=== PATIENT | female | born 1995 | race Caucasian/White ===

== ENCOUNTER → 2019-11-09 10:44 | Outpatient (CLI) | payer OTHER, SELFPAY ==
--- NOTE | ~2019-11-09 | XR_ITS ---
XR lumbar spine 2-3V DATE: 11/09/2019 11:02 INDICATION: Sciatica TECHNIQUE: AP, lateral, coned lateral lumbosacral views COMPARISON: None FINDINGS: There is minimal dextroscoliosis of the lumbar spine. There is mild retrolisthesis at L4-5. The lumbar vertebrae are otherwise normally aligned. No fracture or bone destruction is evident. The included lower thoracic and lumbar pedicles are intact. Spina bifida occulta at L5. Lumbar and lumbosacral interspaces are relatively preserved. The sacroiliac joints are normal. Incidentally noted is a prominent amount of fecal material in the colon. IMPRESSION: Mild retrolisthesis at L4-5 Reviewed, dictated and finalized at location A. IMPRESSION: Mild retrolisthesis at L4-5
== END ==
PROVIDERS: PCP Family Medicine; Visit Provider Physician Assistant Medical
DX: M54.30 Sciatica, unspecified side (principal)
CPT/HCPCS: 72100

== ENCOUNTER 2021-10-24 11:39 | Outpatient (CLI) | payer BC, SELFPAY ==
[2021-10-24 11:57] LABS: Basophils Absolute Auto 0.1 K/mm3 (0.0-0.1); Basophils Percent Auto 0.7 % (0.2-1.2); Eosinophils Absolute Auto 0.2 K/mm3 (0-0.3); Eosinophils Percent Auto 1.8 % (0-4.4); Hematocrit 40.7 % (37.0-47.0); Hemoglobin 12.7 g/dL (12.0-15.0); Immature Granulocyte Absolute 0.03 K/mm3 (0.00-0.031); Immature Granulocyte Percent A 0.4 % (0-0.5); Lymphocytes Percent Auto 28.1 % (18.3-44.2); Mean Corpuscular HGB Conc 31.2 g/dl (32-36); Mean Corpuscular Hemoglobin 25.4 pg (26-34); Mean Corpuscular Volume 81.4 fl (80-100); Mean Platelet Volume 11.2 fl (7.4-10.4); Monocytes Absolute Auto 0.5 K/mm3 (0.1-0.6); Monocytes Percent Auto 5.7 % (2.6-8.5); Neutrophils Absolute Auto 5.4 K/mm3 (1.3-6.7); Neutrophils Percent Auto 63.3 % (45.5-73.1); Platelet Count Result 224 k/mm3 (150-375); Red Cell Distribution Width 13.3 % (11.5-14.5); White Blood Count 8.5 K/mm3 (4.5-10.0)
[2021-10-24 12:12] LABS: Alanine Aminotransferase 18 U/L (6-35); Albumin Level 4.6 g/dL (3.5-5.1); Alkaline Phosphatase 89 U/L (38-126); Anion Gap 12 mmol/L (8-16); Aspartate Amino Transferase 21 U/L (14-36); Bilirubin,Total 0.8 mg/dL (0.2-1.3); Blood Urea Nitrogen 13 mg/dL (7-17); CRP 1.5 mg/dL (<1.0); Calcium 9.3 mg/dL (8.4-10.2); Carbon Dioxide 28 mmol/L (22-30); Chloride 100 mmol/L (98-107); Cholesterol 191 mg/dL (0-200); Estimated Glomerular Filt Rate > 60; Glucose 91 mg/dL (65-110); HDL Direct 50 mg/dL; Potassium 4.2 mmol/L (3.4-5.0); Rheumatoid Factor < 8.6 IU/ML (<12); Sodium 140 mmol/L (137-145); Triglycerides 73 mg/dL (<150)
[2021-10-24 12:21] LABS: LDL Cholesterol Direct 100 mg/dL
[2021-10-24 12:22] LABS: Iron 36 ug/dL (37-170)
[2021-10-24 12:31] LABS: Percent Iron Saturation 8 % (20-50)
[2021-10-24 12:39] LABS: Thyroid Stimulating Hormone 0.681 uIU/mL (0.465-4.680)
[2021-10-24 12:51] LABS: Vitamin D 25 Hydroxy 38.4 ng/mL
[2021-11-01 14:43] LABS: ANA Cascade Screen Negative (Negative)
== END 2021-10-24 11:40 | disposition home or self-care (01) ==
LOC: ANHLAB 11:41
PROVIDERS: PCP Family Medicine; Visit Provider Nurse Practitioner Family
DX: E55.9 Vitamin D deficiency, unspecified (principal); R53.83 Other fatigue; M54.9 Dorsalgia, unspecified; M25.50 Pain in unspecified joint; Z13.29 Encounter for screening for other suspected endocrine disorder; Z13.220 Encounter for screening for lipoid disorders; R25.2 Cramp and spasm; Z13.1 Encounter for screening for diabetes mellitus; E61.1 Iron deficiency; R20.0 Anesthesia of skin; R20.2 Paresthesia of skin; F41.8 Other specified anxiety disorders; R41.89 Other symptoms and signs involving cognitive functions and awareness
CPT/HCPCS: 36415; 80053; 80061; 82306; 82607; 83540; 83550; 84443; 85025; 86038; 86140; 86430

== ENCOUNTER 2024-09-01 19:45 | Emergency (ER) | payer BC, SELFPAY ==
--- NOTE | ~2024-09-01 | CT_ITS ---
CT abdomen pelvis w con Ordering provider: Jomar Mon MD History: 30 years Female with . epigastric pain radiating to back, suspect stone . Comparison: None. Technique: CT abdomen and pelvis with IV and without oral contrast. Automated exposure control and it erative reconstruction technique were employed. The dose-length product was 563.56 mGy-cm. 100 mL Omn ipaque 350 was given IV. Findings: VISUALIZED LOWER CHEST: Possible nodule in the right upper lobe measuring 4 mm is partially imaged. 6 months Follow-up CT is advised. UPPER ABDOMINAL ORGANS: Liver: Normal. Gallbladder: Contracted. Spleen: Normal. Stomach/duodenum: Normal. Pancreas: Normal. Adrenals: Normal. Kidneys: Tiny cyst in the right kidney lower pole. PELVIC ORGANS: The bladder is underfilled with thickened wall. Evaluation for cystitis advised. Retroverted uterus. Hyperdense areas seen in both ovaries which may indicate a ruptured follicles. BOWEL AND MESENTERY: Colon: No evidence of diverticulitis.. Normal appendix. Small Bowel: Normal. No obstruction. Peritoneum/mesentery: No free air or free fluid. No mesenteric lymphadenopathy. RETROPERITONEUM: Normal aorta. No retroperitoneal lymphadenopathy. MUSCULOSKELETAL: Superficial soft tissues: Small fat-containing umbilical hernia. Otherwise, l/The superficial soft ti ssues are normal. Bones: Normal. Bilateral spondylolysis. Otherwise, normal spine. IMPRESSION: 1. No evidence of appendicitis, diverticulitis or obstruction is slightly. 2. Possible nodule in the right upper lobe. 6 months follow-up CT is advised. 3. 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 Reviewed, dictated and finalized at location A.
[2024-09-01 19:47] VITALS: BP 175/93; PULSE 79; RESP 18; TEMP 36.4; O2SAT 98
--- OUTSIDE RECORDS SUMMARY | 2024-09-01 19:47 | XMS_ITS | Clinical Summary ---
Author Organization [facility] Address [address] [place] [address] Care Team Providers Care Supervisor Agricultural Education Name Role Phone Renard Malhotra MD Primary Care Provider [phone] Source Comments [facility],non-owned Affiliates and Associated Physician Practices is amultiple site organization consisting of ambulatory clinics and hospital sitesin [place], [place], [place] and [place]. This disclosure is being madepursuant to the Care Everywhere program and may not contain all information available regarding this patient. Last updated 17.[employer] [facility] Allergies Active Allergy Reactions Criticality Noted Date Comments Flu Virus Vaccine Anaphylaxis High 06/22/2015 Lidocaine Anaphylaxis High 06/22/2015 Tuberculin Tests Anaphylaxis High 10/13/2020 Redness around site, swelling, itchy Medications * Be aware that medications may not be up to date on this document. Alwaysverify current medications with the patient. norethindrone-et hinyl estradiol (LOESTRIN 1.5/30) 1.5-30 MG-MCG tablet Take 1 Tab by mouth once daily Active desvenlafaxine SR 24hr (PRISTIQ) 50 MG tablet Take 50 mg by mouth once daily Active BusPIRone HCl (BUSPAR PO) Take by mouth once daily Active levonorgestrel (MIRENA, 52 MG,) 20 MCG/24HR IUDIndications:r eceived October 2015 for birthcontrol 1 Device by Intrauterine route as directed Reasons: received October 2015 for birthcontrol Active fluticasone propionate (FLONASE) 50 MCG/ACT nasal spray [place] 2 Sprays into each nostril once daily 1 Bottle 6 Active albuterol HFA (PROAIR HFA) 108 (90 BASE) MCG/ACT inhaler Inhale 2 Puffs by mouth every 4 hours as needed for Shortness of Breath, Wheezing or Cough 1 Inhaler 6 Active EPINEPHrine (EPIPEN) 0.3 MG/0.3ML auto-injector pen Inject 0.3 mL into muscle once as needed for Anaphylaxis 0.6 mL 1 1 Active hydrOXYzine hcl (ATARAX) 25 MG tablet Take 1 (one) tablet by mouth 4 times daily as needed for Itching 15 tablet 1 Active ondansetron, disintegrating, (ZOFRAN ODT) 4 MG tablet Take 1 (one) tablet by mouth every 6 hours as needed for Nausea/Vomiting Allow tablet to dissolve on the tongue 8 tablet 1 Active Social History Tobacco Use Types Packs/Day Years Used Date Smoking Tobacco: Never Smokeless Tobacco: Never Alcohol Use Standard Drinks/Week Comments Not Currently 0 (1 standard drink = 0.6 oz pur e alcohol) socially Comments No Sex and Gender Information Value Date Recorded Sex Assigned at Not on file 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 Gender Identity Not on file Sexual Orientation Not on file Last Filed Vital Signs Vital Sign Reading Time Taken Comments Blood Pressure 162/92 10/14/2020 2:48 AM CDT Pulse 92 10/14/2020 2:48 AM CDT Temperature 36.7 C (98.1 F) 10/14/2020 2:48 AM CDT Respiratory Rate 16 10/14/2020 2:48 AM CDT Oxygen Saturation 100% 10/14/2020 2:48 AM CDT Inhaled Oxygen Concentration - - Weight 83.9 kg (185 lb) 10/13/2020 11:08 PM CDT Height 167.6 cm (5' 6) 10/13/2020 11:08 PM CDT Body Mass Index 29.86 10/13/2020 11:08 PM CDT Plan of Treatment Health Maintenance Due Date Last Done Comments HIV SCREENING 02/17/2009 HEPATITIS C SCREENING 02/13/2012 DTAP/TDAP/TD VACCINES (1 - Tdap) 02/17/2013 HEPATITIS B VACCINE (1 of 3 - 19+ 3-dose series) 02/17/2013 COVID-19 VACCINE (2023-2 5 season) 2023 DEPRESSION SCREENING 03/31/2024 ZOSTER VACCINE (1 of 2) 02/18/2044 HIB VACCINE Aged Out No longer eligi ble based on patient's age to complete this topic HPV VACCINE Aged Out No longer eligi ble based on patient's age to complete this topic MENINGOCOCCAL (Group B) VACC INE SHARED DECISION-MAKING Aged Out No longer eligibl e based on patient's age to complete this topic MENINGOCOCCAL GROUPS A/C/Y/W VACCINE Aged Out No longer eligible b ased on patient's age to complete this topic PNEUMOCOCCAL VACCINE Aged Out No long er eligible based on patient's age to complete this topic Care Teams Supervisor Agricultural Education Relationship Specialty Start Date End Date Renard Malhotra MD [address] [place] [address] PCP - General Family Medicine 10/14/20
--- NOTE | 2024-09-01 20:04 | ED_ITS ---
HPI - Abdominal Pain General Chief Complaint: Abdominal Pain Stated Complaint: sharp pain in abdomen Time Seen by Provider: 09/01/24 19:52 History of Present Illness HPI narrative: 30-year-old female with history of kidney stones and gallstones presenting to the emergency department epigastric pain radiating towards her back. Symptoms started earlier today and got worse after she tried eat injuring something. She has tried Tylenol and Pepto-Bismol home as well as Zofran without any relief of symptoms. She states she has also been feeling unwell for last few days with sudden diarrhea that has since resolved and then the pain started today. No trauma or injury. No recent travel. No fever chills. No urinary complaints. Denies any chance of . No history of abdominal surgeries. Related Data Home Medications ?Medication ?Instructions ?Recorded ?Confirmed ?Last Taken ?Type mecobalamin (vitamin B12) 500 mcg mcg PO 01/08/24 07/14/24 Unknown History chewable tablet fluticasone propionate 50 1 spray intranasal DAILY 04/30/24 08/13/24 Unknown History mcg/actuation nasal spray,suspension (Flonase Allergy Relief) multivitamin 1 tablet PO DAILY 04/30/24 07/14/24 Unknown History loratadine 10 mg capsule (Claritin 10 mg PO DAILY 08/13/24 08/13/24 Unknown History Liqui-Gel) omega-3 360 rp-bsk-anz-fish cap PO 08/13/24 08/13/24 Unknown History oil-vitamin D3 12.5 mcg capsule omeprazole 40 mg capsule,delayed mg PO DAILY 08/13/24 08/13/24 Unknown History release Allergies Allergy/AdvReac Type Severity Reaction Status Date / Time Milk Containing Products Allergy Severe Hives Verified 08/13/24 09:09 (Dairy) influenza A (H1N1) virus AdvReac Severe Anaphylactic Verified 08/13/24 07:46 vaccine m-dexter-split 2009 Shock (From influenza A (H1N1)) lidocaine AdvReac Severe Unknown Verified 08/13/24 07:46 tuberculin,PPD,multi-puncture AdvReac Mild Unknown Verified 08/13/24 07:46 Review of Systems 2 Review of Systems: As reviewed above in HPI [facility] Past Medical History Medical History Sinusitis chronic, frontal Bronchitis Tremor Iron deficiency UTI symptoms URI (upper respiratory infection) Brain fog BMI 33.0-33.9,adult BMI 32.0-32.9,adult Family History Family History Grandparent Breast cancer Ovarian cancer Grandparent Acute Crohn's disease Father Deep vein blood clot of right lower extremity Pulmonary embolism, blood-clot, obstetric Grandparent No problems noted. Grandparent Multiple sclerosis Mother Diabetes mellitus Sibling No problems noted. Social History Social History Smoking status: Never smoker Second hand tobacco smoke exposure: Yes Alcohol intake: former Substance use: current Substance use type: marijuana Do You Feel Safe in your Home?: Yes Lack of Transportation: No Lack of Food: Never True Current Housing: I Have Housing Concerned About Future Housing: No Difficulty Paying Gas/Electric Bills: No Difficulty Paying for Meds: No Currently Unemployed: No Difficulty w/ Childcare or Family Care: No Living arrangements: with family Occupation/Education: occupation Additional occupation/education comments: [employer] Gender identity (if verbalized by the patient): Female Sexual Orientation (if Verbalized by the Patient): Lesbian, Mariscal, or Homosexual Spiritual care concerns: No Agree to blood products: Yes Exam 2 Narrative: GENERAL: [Well-appearing, well-nourished, and in no acute distress.] HEAD: [Normocephalic, atraumatic.] EYES: [PERRLA and EOMI.] ENT: Nares clear, no rhinorrhea or epistaxis. Mucous membranes moist. NECK: Supple. CHEST: [Clear to auscultation. No respiratory distress.] HEART: [Regular rate and rhythm]. No murmur heard. [Normal peripheral pulses.] ABDOMEN: [Soft, nondistended], tender to palpation in the epigastrium but no rebound, [No rigidity or guarding] EXTREMITIES: Normal range of motion. [No edema.] SKIN: Warm, dry, no rash. NEURO: [No focal deficits]. Alert and oriented [x3.] PSYCH: [Normal mood and affect.] Course Vital Signs Vital signs: Vital Signs Temperature 36.4 C 09/01/24 19:47 Pulse Rate 79 06/04/25 19:47 Respiratory Rate 18 09/01/24 19:47 Blood Pressure 175/93 H 09/01/24 19:47 Pulse Oximetry 98 09/01/24 19:47 Oxygen Delivery Room Air 09/01/24 19:47 Temperature 36.4 C 09/01/24 19:47 Pulse Rate 77 09/01/24 22:00 Respiratory Rate 14 09/01/24 22:00 Blood Pressure 137/78 09/01/24 22:00 Pulse Oximetry 98 09/01/24 22:00 Oxygen Delivery Room Air 09/01/24 19:47 MDM - Abdominal Pain MDM Narrative Medical decision making narrative: 30-year-old female with history of gallstones and kidney stones presenting to the emergency room with epigastric pain radiating towards her back. Associated some nausea and vomiting. She has tried some Tylenol, Zofran, Pepto-Bismol at home without any significant relief. Pain started earlier this afternoon and got worse after she tried to eat something. For last few days she has also been having some diarrhea. No fever, chills, chest pain, shortness a breath, trauma or injury. Denies chance of . She does have some mild tenderness with examination of the abdomen. She is afebrile, slightly hypertensive but not severe range. No tachypnea, hypoxia. Considerations presently are for gastroenteritis is pressure with diarrheal component, gastritis, small bowel obstruction less likely. Possibility of kidney stone versus gallstones specially with the description of pain radiating towards her back. Low suspicion vascular pathology. Patient was given low-dose morphine, fluids, Zofran and laboratory studies including CBC, CMP, lipase, urinalysis and test ordered. CT scan of the abdomen pelvis with IV contrast ordered for further delineation. Patient re-evaluated after labs. Laboratory studies are very reassuring. No leukocytosis or anemia. Normal platelet count. Urinalysis without blood or infection. Negative test. Normal kidney and liver function panel. Normal electrolytes. Patient CT scan was independently reviewed and also interpreted by radiology. There is no apparent evidence of any diverticulitis, appendicitis, obstruction. No appreciable acute process in the abdomen or pelvis. There is some spondylosis of L5-S1 but not having any pain. Possible nodule in the right upper lobe which I informed the patient of for outpatient follow-up in 6 months with her doctor. Patient is not having upper respiratory symptoms or any chest symptoms showed no need for further evaluation at this time. Patient re-evaluated after pain control and is very comfortable. Tolerating oral intake, passed p.o. challenge and safe for discharge home. Sent home with Ethel and Nimesh as needed. Given return precautions. Medical Records Attestation: I reviewed the patient's medical records. Lab Data Attestation: I reviewed the patient's lab results. 09/01/24 20:12 09/01/24 20:12 Labs: Lab Results 09/01/24 09/01/24 Range/Units 20:12 21:39 WBC 9.5 (4.5-10.0) K/mm3 RBC 4.80 (4.2-5.4) M/mm3 Hgb 12.7 (12.0-15.0) g/dL Hct 39.2 (37.0-47.0) % MCV 81.7 (80-100) fl MCH 26.5 (26-34) pg MCHC 32.4 (32-36) g/dl RDW 12.9 (11.5-14.5) % Plt Count 218 (150-375) k/mm3 MPV 11.5 H (7.4-10.4) fl Immature Gran % (Auto) 0.2 (0-0.5) % Neut % (Auto) 64.0 (45.5-73.1) % Lymph % (Auto) 26.3 (18.3-44.2) % [place] % (Auto) 5.7 (2.6-8.5) % Eos % (Auto) 3.2 (0-4.4) % Baso % (Auto) 0.6 (0.2-1.2) % Lymph # (Auto) 2.50 (0.9-3.2) K/mm3 [place] # (Auto) 0.5 (0.1-0.6) K/mm3 Eos # (Auto) 0.3 (0-0.3) K/mm3 Baso # (Auto) 0.1 (0.0-0.1) K/mm3 Abs Immat Gran (auto) 0.02 (0.00-0.031) K/mm3 Absolute Neuts (auto) 6.1 (1.3-6.7) K/mm3 Absolute Nucleated RBC 0.000 (0.0-0.012) K/mm3 Nucleated RBC % 0.0 (0.0-0.2) % Sodium 139 (137-145) mmol/L Potassium 3.5 (3.4-5.0) mmol/L Chloride 106 (98-107) mmol/L Carbon Dioxide 23 (22-30) mmol/L Anion Gap 10 (4-12) mmol/L BUN 13 (7-17) mg/dL Creatinine 0.69 L (0.7-1.0) mg/dL Estim Creat Clear Calc 113 ml/min Estimated GFR > 60 (59 - ) Glucose 147 H (65-110) mg/dL Calcium 9.1 (8.4-10.2) mg/dL Total Bilirubin 0.8 (0.2-1.3) mg/dL AST 25 (14-36) U/L ALT 18 (6-35) U/L Alkaline Phosphatase 69 (38-126) U/L Total Protein 7.9 (6.3-8.2) g/dL Albumin 4.4 (3.5-5.1) g/dL Lipase 73 (23-300) U/L Serum HCG, Qual Negative Urine Color Yellow (Yellow) Urine Appearance Clear (Clear) Urine pH 5.5 (5.0-9.0) Ur Specific [place] 1.027 (1.001-1.035) Urine Protein Negative (Negative) mg/dL Urine Glucose (UA) Negative (Negative) mg/dL Urine Ketones Negative (Negative) mg/dL Ur Blood (Man) Negative (Negative) Urine Nitrate Negative (Negative) Urine Bilirubin Negative (Negative) Urine Urobilinogen 1.0 (<2.0) mg/dL Leukocyte Esterase Rfl Negative (Negative) CONNIE/UL Imaging Data Attestation: I personally reviewed and interpreted this imaging study as follows: My impression: Impressions Abdomen/Pelvis CT 09/01/24 21:36 IMPRESSION: 1. No evidence of appendicitis, diverticulitis or obstruction is slightly. 2. Possible nodule in the right upper lobe. 6 months follow-up CT is advised. 3. 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 Radiologist's impression: ITS Impressions Abdomen/Pelvis CT 09/01/24 21:36 IMPRESSION: 1. No evidence of appendicitis, diverticulitis or obstruction is slightly. 2. Possible nodule in the right upper lobe. 6 months follow-up CT is advised. 3. 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 Discharge Plan Discharge Clinical Impression: Gastroenteritis, Abdominal pain Patient Disposition: Home Condition: Stable Instructions: Antibiotic Form, Abdominal Pain (ED) Additional Instructions: All of your laboratory studies and imaging is very reassuring. Your symptoms are very consistent with gastroenteritis or stomach virus/flu. We will send you home with some Zofran and Bentyl as needed for symptom control. If symptoms persist or worsen follow-up with your regular doctor or return to the emergency department if not able tolerate oral intake, intractable fevers, intractable pain or any other concerns. We did discuss your incidental pulmonary nodule on your right side but this is unrelated to today's visit and just needs regular follow-up with your regular doctor in 6 months. Patient Language: Serbian Prescriptions: New dicyclomine 20 mg tablet 20 mg PO TID PRN (Reason: abdominal pain) Qty: 14 0RF ondansetron 4 mg tablet,disintegrating 4 mg PO Q8H PRN (Reason: nausea and vomiting) Qty: 20 0RF No Action mecobalamin (vitamin B12) 500 mcg tablet,chewable PO fluticasone propionate [Flonase Allergy Relief] 50 mcg/actuation spray,suspension 1 spray intranasal DAILY Rx Instructions: administer into each nostril multivitamin Tablet 1 tablet PO DAILY omeprazole 40 mg capsule,delayed release(DR/EC) PO DAILY [id number] oil-vit D3 360 mg- 12.5 mcg capsule PO Claritin Liqui-Gel 10 mg capsule 10 mg PO DAILY lisdexamfetamine [Vyvanse] 30 mg capsule 30 mg PO QAM Qty: 30 0RF Follow-up/Referrals: PHYSICIAN NOT ON STAFF,NONSTAFF [Primary Care Provider] - Time of Disposition: 22:08
--- NOTE | 2024-09-01 20:14 | PC.NURSE ---
Pt unable to give urine sample at this time.
[2024-09-01] MEDS: LACTATED RINGERS 1,000 ML 999 ML IV CONT (20:15)
[2024-09-01] MEDS: MORPHINE SULFATE (*CRX) 2 MG/ML INJ IV PUSH (20:15)
[2024-09-01] MEDS: ONDANSETRON INJ 4 MG/2 ML VIAL IV PUSH (20:15)
--- OUTSIDE RECORDS SUMMARY | 2024-09-01 20:16 | XMS_ITS | Referral Summary ---
Author Organization [place] [id number] [facility] Address [address] [place] [address] Care Team Providers Care Refund Specialist Name Role Phone Renard Malhotra MD Primary Care Provider [phone] Allergies Active Allergy Reactions Criticality Noted Date Comments Lidocaine Anaphylaxis Reaction: ANAPHYLAXIS Medications buPROPion XL (WELLBUTRIN XL) 300 mg 24 hr tablet 0 Active ondansetron ODT (ZOFRAN-ODT) 4 mg disintegrating tablet 0 Active cyclobenzaprine (FLEXERIL) 5 mg tablet [address] (CYMBALTA) 30 mg capsule 0 Active fluticasone propionate (FLONASE) 50 mcg/actuation nasal spray Administer 2 sprays into affected nostril(s) daily 6 Active hydrOXYzine (VISTARIL) 25 mg capsule 0 Active ibuprofen (ADVIL,MOTRIN) 600 mg tablet Take 600 mg by mouth every 6 (six) hours as needed Active Sprintec, 28, 0.25-35 mg-mcg per tablet 0 Active ondansetron ODT (ZOFRAN-ODT) 4 mg disintegrating tablet Dissolve 1 tablet oral every 4 hours as needed for nausea or vomiting. 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 Gender Identity Not on file Sexual Orientation Not on file Last Filed Vital Signs Vital Sign Reading Time Taken Comments Blood Pressure 150/95 01/25/2022 5:13 AM CDT Pulse 64 01/25/2022 5:13 AM CDT Temperature 36.5 C (97.7 F) 01/25/2022 1:03 AM CDT Respiratory Rate 16 01/25/2022 5:13 AM CDT Oxygen Saturation 98% 01/25/2022 5:13 AM CDT Inhaled Oxygen Concentration - - Weight 93 kg (205 lb) 01/24/2022 10:51 PM CDT Height 167.6 cm (5' 6) 01/24/2022 10:51 PM CDT Body Mass Index 33.09 01/24/2022 10:51 PM CDT Plan of Treatment Not on file Insurance CHOICE PLUS [facility] HMO/PPO Address: [facility] [address] [place] [address] CHOICE PLUS [facility] HMO/PPO Address: [facility] [id number] [place] [address] Care Teams Refund Specialist Relationship Specialty Start Date End Date Renard Malhotra MD PCP - General Family Medicine 01/23/22
--- OUTSIDE RECORDS SUMMARY | 2024-09-01 20:16 | XMS_ITS | Clinical Summary ---
Author Organization [facility] Address [address] [place] [address] Care Team Providers Care Chute Tapper Name Role Phone Renard Malhotra MD Primary Care Provider Source Comments [facility],non-owned Affiliates and Associated Physician Practices is amultiple site organization consisting of ambulatory clinics and hospital sitesin [place], [place], [place] and [place]. This disclosure is being madepursuant to the Care Everywhere program and may not contain all information available regarding this patient. 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
--- OUTSIDE RECORDS SUMMARY | 2024-09-01 20:16 | XMS_ITS | Clinical Summary ---
Author Organization [place] [id number] [facility] Address [address] [place] [address] Care Team Providers Care Student Recruiter Name Role Phone Renard Malhotra MD Primary Care Provider [phone] Allergies Active Allergy Reactions Criticality Noted Date [...] nausea or vomiting. 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 Gender Identity Not on file Sexual Orientation Not on file Obstetrics History Last Filed Vital Signs Vital Sign Reading [...] 01/24/2022 10:51 PM CDT Plan of Treatment Health Maintenance Due Date Last Done Comments Cervical Cancer Screening 02/17/1994 Depression Screening 02/17/1994 Hepatitis C Screening 02/17/1994 Varicella Vaccines (1 of 2 - 13+ 2-dose series) 02/17/2007 Regular Well Visit/Exam 18-64 02/18/2012 DTaP/Tdap/Td Vaccine (6 - Td or Tdap) 12/08/2015 12/07/2005, 11/17/1999, 10/10/1994, Additional history exists Influenza Vaccine (Season Ended) 2024 01/06/2009 Hepatitis B Screening Completed 1995 , 03/21/1994, 02/18/1994 HPV Vaccines Aged Out No longer eligi ble based on patient's age to complete this topic Pneumococcal vaccine <65 Aged Out No longer eligible based on patient's age to complete this topic Insurance CHOICE PLUS [facility] CHOICE PLUS [place] [id number] Care Teams Student Recruiter Relationship Specialty Start Date End Date Renard Malhotra MD PCP - General Family Medicine 01/23/22
[2024-09-01 20:18] LABS: Basophils Absolute Auto 0.1 K/mm3 (0.0-0.1); Basophils Percent Auto 0.6 % (0.2-1.2); Eosinophils Absolute Auto 0.3 K/mm3 (0-0.3); Eosinophils Percent Auto 3.2 % (0-4.4); Hematocrit 39.2 % (37.0-47.0); Hemoglobin 12.7 g/dL (12.0-15.0); Immature Granulocyte Absolute 0.02 K/mm3 (0.00-0.031); Immature Granulocyte Percent A 0.2 % (0-0.5); Lymphocytes Percent Auto 26.3 % (18.3-44.2); Mean Corpuscular HGB Conc 32.4 g/dl (32-36); Mean Corpuscular Hemoglobin 26.5 pg (26-34); Mean Corpuscular Volume 81.7 fl (80-100); Mean Platelet Volume 11.5 fl (7.4-10.4); Monocytes Absolute Auto 0.5 K/mm3 (0.1-0.6); Monocytes Percent Auto 5.7 % (2.6-8.5); Neutrophils Absolute Auto 6.1 K/mm3 (1.3-6.7); Platelet Count Result 218 k/mm3 (150-375); Red Cell Distribution Width 12.9 % (11.5-14.5); White Blood Count 9.5 K/mm3 (4.5-10.0)
[2024-09-01 20:33] LABS: Alanine Aminotransferase 18 U/L (6-35); Albumin Level 4.4 g/dL (3.5-5.1); Alkaline Phosphatase 69 U/L (38-126); Anion Gap 10 mmol/L (4-12); Aspartate Amino Transferase 25 U/L (14-36); Bilirubin,Total 0.8 mg/dL (0.2-1.3); Blood Urea Nitrogen 13 mg/dL (7-17); Calcium 9.1 mg/dL (8.4-10.2); Carbon Dioxide 23 mmol/L (22-30); Chloride 106 mmol/L (98-107); Estimated CRCL calculation 113 ml/min; Estimated Glomerular Filt Rate > 60; Glucose 147 mg/dL (65-110); Lipase 73 U/L (23-300); Potassium 3.5 mmol/L (3.4-5.0); Sodium 139 mmol/L (137-145); Total Protein 7.9 g/dL (6.3-8.2)
[2024-09-01 21:15] LABS: SPREG INTERNAL CONTROL Positive; Serum Qual hCG Negative
[2024-09-01 21:46] LABS: Add Urine Microscopic? NO; Appearance Urine Clear (Clear); Bilirubin Urine Negative (Negative); Blood Urine Negative (Negative); Color Urine Yellow (Yellow); Glucose Urine UA Negative (Negative); Ketones Urine Negative (Negative); Leukocyte Esterase Ur Negative LEU/UL (Negative); Nitrate Urine Negative (Negative); Protein Urine Negative (Negative); Specific Grav Ur 1.027 (1.001-1.035); pH Urine 5.5 (5.0-9.0)
[2024-09-01 22:00] VITALS: BP 137/78; PULSE 77; RESP 14; O2SAT 98
== END 2024-09-01 22:15 | disposition home or self-care (01) ==
PROVIDERS: Emergency Provider Student in an Organized Health Care Education/Training Program
DX: K52.9 Noninfective gastroenteritis and colitis, unspecified (principal); E61.1 Iron deficiency; Z77.22 Contact with and (suspected) exposure to environmental tobacco smoke (acute) (chronic); Z87.442 Personal history of urinary calculi; M43.07 Spondylolysis, lumbosacral region; R91.8 Other nonspecific abnormal finding of lung field
CPT/HCPCS: 36415; 74177; 80053; 81003; 83690; 84703; 85025; 96361; 96374; 96375; 99284; J2270; J2405; J7120; Q9967

== ENCOUNTER 2024-09-17 12:54 | Outpatient (CLI) | payer BC, SELFPAY ==
[2024-09-17 13:18] LABS: Hematocrit 39.4 % (37.0-47.0); Hemoglobin 12.8 g/dL (12.0-15.0); Mean Corpuscular HGB Conc 32.5 g/dl (32-36); Mean Corpuscular Hemoglobin 26.8 pg (26-34); Mean Corpuscular Volume 82.4 fl (80-100); Mean Platelet Volume 11.2 fl (7.4-10.4); Platelet Count Result 225 k/mm3 (150-375); Red Blood Count 4.78 M/mm3 (4.2-5.4); Red Cell Distribution Width 12.7 % (11.5-14.5); White Blood Count 6.7 K/mm3 (4.5-10.0)
[2024-09-17 13:30] LABS: Alanine Aminotransferase 17 U/L (6-35); Albumin Level 4.4 g/dL (3.5-5.1); Alkaline Phosphatase 70 U/L (38-126); Anion Gap 10 mmol/L (4-12); Aspartate Amino Transferase 25 U/L (14-36); Bilirubin,Total 1.2 mg/dL (0.2-1.3); Blood Urea Nitrogen 11 mg/dL (7-17); Calcium 9.1 mg/dL (8.4-10.2); Carbon Dioxide 25 mmol/L (22-30); Chloride 104 mmol/L (98-107); Cholesterol 193 mg/dL (0-200); Estimated Glomerular Filt Rate > 60; Glucose 88 mg/dL (65-110); HDL Direct 65 mg/dL; Magnesium 1.8 mg/dL (1.6-2.3); Potassium 4.1 mmol/L (3.4-5.0); Sodium 139 mmol/L (137-145); Total Protein 8.1 g/dL (6.3-8.2); Triglycerides 64 mg/dL (<150)
[2024-09-17 13:35] LABS: Iron 81 ug/dL (37-170)
[2024-09-17 13:41] LABS: LDL Cholesterol Direct 90 mg/dL
[2024-09-17 13:44] LABS: Percent Iron Saturation 18 % (20-50)
[2024-09-17 14:00] LABS: Thyroid Stimulating Hormone 0.633 uIU/mL (0.465-4.680)
[2024-09-17 14:32] LABS: Vitamin D 25 Hydroxy 24.7 ng/mL
[2024-09-17 14:36] LABS: Folic Acid 8.1 ng/mL (2.76->20)
== END 2024-09-17 12:55 | disposition home or self-care (01) ==
LOC: ANHLAB 12:56
PROVIDERS: PCP Family Medicine; Visit Provider Nurse Practitioner Family
DX: G25.0 Essential tremor (principal); F41.8 Other specified anxiety disorders; E55.9 Vitamin D deficiency, unspecified; R41.840 Attention and concentration deficit; R20.2 Paresthesia of skin; R53.83 Other fatigue
CPT/HCPCS: 36415; 80053; 80061; 82306; 82607; 82746; 83540; 83550; 83735; 84443; 85027

== ENCOUNTER 2025-02-18 21:38 | Emergency (ER) | payer BC, SELFPAY ==
--- NOTE | ~2025-02-18 | CT_ITS ---
CT abd pelvis lumbar w con CT lumbar spine Clinical History: fall, low back pain . Comparison: CT abdomen pelvis 09/01/2024 Technique: Axial images lung bases to symphysis pubis 100 mL Omnipaque 350 Coronal, sagittal reformats CT images acquired with automatic exposure control for dose reduction DLP: 767 mGy-cm Findings: Lung bases: Clear. Visualized heart and pericardium: Unremarkable. Liver: Steatosis. Gallbladder: Unremarkable. Spleen: Unremarkable. Pancreas: Unremarkable. Adrenal glands: Unremarkable. Kidneys: Right kidney- No hydronephrosis. No renal stones. Left kidney- No hydronephrosis. No renal stones. Distal esophagus/stomach: Unremarkable. Small bowel loops: Normal caliber and wall thickness. Colon: Normal caliber and wall thickness. Normal RLQ appendix. Nodes: No enlarged nodes. Peritoneum: No ascites. No free air. Urinary bladder: Unremarkable. Uterus: Retroflexed. Adnexa: No masses. Bones: No acute bony abnormality. Chronic L5 spondylolysis with minimal spondylolisthesis. Soft tissues: Unremarkable. Aorta: No aneurysm or dissection. IVC: Unremarkable. Main portal vein/SMV/splenic vein: Patent. IMPRESSION: Abdomen/pelvis: 1. No acute findings. Lumbar spine: 1. No acute findings. Reviewed, dictated and finalized at location R. OPEDIC SPECIALIST
--- NOTE | ~2025-02-18 | CT_ITS ---
CT thoracic spine without contrast CLINICAL HISTORY: fall Technique: Thoracic spine Sagittal and coronal reformats. No contrast CT images acquired with automatic exposure control for dose reduction DLP: 731 mGy-cm Comparison: None Findings: No fracture. No listhesis. No degenerative changes. No paravertebral soft tissue abnormality. IMPRESSION: 1. No acute abnormality. Reviewed, dictated and finalized at location R. D OR BLOOD BANK TECHNICIAN IMPRESSION: 1. No acute abnormality.
--- OUTSIDE RECORDS SUMMARY | 2025-02-18 21:41 | XMS_ITS | Clinical Summary ---
Author Organization [facility] Address [address] [place] [address] Care Team Providers Care Bunch Maker Hand Name Role Phone Renard Malhotra MD Primary Care Provider [phone] Source Comments [facility],non-owned Affiliates and Associated Physician Practices is amultiple site organization consisting of ambulatory clinics and hospital sitesin [place], [place], [place] and [place]. This disclosure is being madepursuant to the Care Everywhere program and may not contain all information available regarding this patient. 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
[2025-02-18 21:44] VITALS: BP 150/101; PULSE 90; RESP 18; TEMP 36.6; O2SAT 96
--- NOTE | 2025-02-18 22:24 | ED_ITS ---
HPI - Fall General Chief Complaint: Fall Stated Complaint: fall down 7 stairs, back pain Time Seen by Provider: 02/18/25 21:55 History of Present Illness HPI Narrative: 31-year-old female with a history of chronic sciatica, GERD, hypermobility. Patient presents to the ED after falling down several steps on her tailbone today. She was carrying a large bag of dog food down the basement steps and slipped on 1 step with her weight issues and struck her tailbone against the step and each subsequent step for the next 6 stairs. Did not hit her head or other extremities. Endorses pain strictly in the tailbone and lower spine as well as some worsening of her chronic paresthesias that she has in her bilateral lower extremities. Denies any weakness or numbness and states she does feels like a burning paresthesia that feels worse than her baseline that she has had previously. Denies any head trauma, chest trauma, abdominal trauma. No neck pain or stiffness. No vision deficits or loss of consciousness. No loss of urinary or bowel continence. Was able to get up with some assistance and was driven to the hospital. Patient endorses 9/10 pain in her tailbone but no other locations. Related Data Home Medications ?Medication ?Instructions ?Recorded ?Confirmed ?Last Taken ?Type mecobalamin (vitamin B12) 500 mcg mcg PO 01/08/2401/29 Unknown History chewable tablet multivitamin 1 tablet PO DAILY 04/30/24 1 04/20/24 Unknown History loratadine 10 mg capsule (Claritin 10 mg PO DAILY 07/2902/18/25 02/17/25 History Liqui-Gel) omega-3 360 ua-uwh-sjz-fish cap PO 08/13/24 02/10/25 U nknown History oil-vitamin D3 12.5 mcg capsule fluticasone propionate 50 2 spray intranasal BID 12/1702/18/25 02/18/25 History mcg/actuation nasal spray,suspension (Flonase Allergy Relief) Allergies Allergy/AdvReac Type Severity Reaction Status Date / Time Milk Containing Products Allergy Severe Hives Verified 02/18/25 22:31 (Dairy) influenza A (H1N1) virus AdvReac Severe Anaphylactic Verified 02/18/25 22:31 vaccine m-dexter-split 2009 Shock (From influenza A (H1N1)) lidocaine AdvReac Severe Unknown Verified 02/18/25 22:31 tuberculin,PPD,multi-puncture AdvReac Mild Unknown Verified 02/18/25 22:31 Review of Systems 2 Review of Systems: As reviewed above in [facility] Past Medical History Medical History Sinusitis chronic, frontal Bronchitis Tremor Iron deficiency UTI symptoms URI (upper respiratory infection) Brain fog BMI 33.0-33.9,adult BMI 32.0-32.9,adult Family History Family History Grandparent Breast cancer Ovarian cancer Grandparent Acute Crohn's disease Father Deep vein blood clot of right lower extremity Pulmonary embolism, blood-clot, obstetric Grandparent No problems noted. Grandparent Multiple sclerosis Mother Diabetes mellitus Sibling No problems noted. 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 Mucous membranes moist. NECK: Supple. CHEST: [Clear to auscultation. No respiratory distress.] HEART: [Regular rate and rhythm]. No murmur heard. [Normal peripheral pulses.] ABDOMEN: [Soft, nondistended], [nontender], [No rigidity or guarding] EXTREMITIES: Focal tenderness to palpation in the low lumbar spine near the tailbone. No step-offs deformities or bruising externally. No paraspinal muscle tenderness. EHL and FHL with 5/5 strength. Able to hold both legs against gravity without any difficulty. Able to abduct flex and extend at the legs. ankle plantar and dorsiflexion are full bilaterally. Straight leg raise elicits pain in the lumbar back worse on the left side compared to the right. No upper extremity injuries. No cervical or upper thoracic spinal injury. No extremity bruising or trauma. SKIN: Warm, dry, no rash. NEURO: Subjective mild paresthesias going down the sciatic nerve distribution bilaterally L>R and more so on the posterior aspects of both legs and plantar surface of both heels, less so on the ventral surface. No saddle anesthesias. Strength is full bilaterally. No incontinence or mental status changes. PSYCH: [Normal mood and affect.] Course Vital Signs Vital signs: Vital Signs Temperature 36.6 C 02/18/25 21:44 Pulse Rate 90 02/18/25 21:44 Respiratory Rate 18 02/18/25 21:44 Blood Pressure 150/101 H 02/18/25 21:44 Pulse Oximetry 96 02/18/25 21:44 Oxygen Delivery Room Air 02/18/25 21:44 Temperature 36.6 C 02/18/25 21:44 Pulse Rate 73 02/18/25 23:59 Respiratory Rate 14 02/18/25 23:59 Blood Pressure 139/77 02/18/25 23:59 Pulse Oximetry 98 02/18/25 23:59 Oxygen Delivery Room Air 02/18/25 21:44 MDM - Fall MDM Narrative Medical decision making narrative: 31-year-old female with a history of chronic sciatica, GERD, hypermobility. Patient presents to the ED after falling down several steps on her tailbone today. She was carrying a large bag of dog food down the basement steps and slipped on 1 step with her weight issues and struck her tailbone against the step and each subsequent step for the next 6 stairs. Did not hit her head or other extremities. Endorses pain strictly in the tailbone and lower spine as well as some worsening of her chronic paresthesias that she has in her bilateral lower extremities. Denies any weakness or numbness and states she does feels like a burning paresthesia that feels worse than her baseline that she has had previously. Denies any head trauma, chest trauma, abdominal trauma. No neck pain or stiffness. No vision deficits or loss of consciousness. No loss of urinary or bowel continence. Was able to get up with some assistance and was driven to the hospital. Patient endorses 9/10 pain in her tailbone but no other locations. Focal tenderness to palpation in the low lumbar spine near the tailbone. No step-offs deformities or bruising externally. No paraspinal muscle tenderness. EHL and FHL with 5/5 strength. Able to hold both legs against gravity without any difficulty. Able to abduct flex and extend at the legs. ankle plantar and dorsiflexion are full bilaterally. Straight leg raise elicits pain in the lumbar back worse on the left side compared to the right. No upper extremity injuries. No cervical or upper thoracic spinal injury. No extremity bruising or trauma. Subjective mild paresthesias going down the sciatic nerve distribution bilaterally L>R and more so on the posterior aspects of both legs and plantar surface of both heels, less so on the ventral surface. No saddle anesthesias. Strength is full bilaterally. No incontinence or mental status changes. Patient has normal vital signs here without any tachycardia, fever, hypoxemia or significant blood pressure concerns. Symptoms consistent with tailbone bruising versus less likely occult fracture and very unlikely spinal cord injury given her normal motor function lack of spinal step-offs, lack of saddle anesthesias or incontinence. Shared he has baseline sciatic nerve distribution paresthesias that were slightly worsened today by the fall likely from the acute compression during the injury itself but low suspicion sustained trauma based on exam and findings. Will obtain CT scans of the thoracic and lumbar spine as well as the abdomen pelvis for further evaluation of the tailbone region and basic laboratory studies ordered. She was given Dilaudid and gabapentin for her symptoms. CTs were independently reviewed and also interpreted by Radiology. Radiology interprets no acute fractures but she does have evidence of a bilateral L5 pars defect with some minimal anterolisthesis of L5 on S1. I relayed this information to the patient and plans will be for outpatient neurosurgical follow-up given that she is having pain controlled at this time ambulatory in the emergency room without any difficulties and her paresthesias are much improved after the pain control. She has no bowel or bladder continence issues or any weakness. Spoke with Dr. Hahn from Neurosurgery for recommendations after we discussed her case and she will be safe for discharge with regular follow-up with him, no need for bracing or anything at this time. Her laboratory studies and CT of the abdomen pelvis and thoracic spine showed no acute findings. Patient's pain is controlled after some medications for and she felt comfortable with the plan to go home. Was given strict return precautions as well as pain medications to take at home until she can follow-up with neurosurgery. Medical Records Attestation: I reviewed the patient's medical records. Lab Data Attestation: I reviewed the patient's lab results. 02/18/25 22:57 02/18/25 22:57 Labs: Lab Results 02/18/25 Range/Units 22:57 WBC 8.7 (4.5-10.0) K/mm3 RBC 4.46 (4.2-5.4) M/mm3 Hgb 12.3 (12.0-15.0) g/dL Hct 37.0 (37.0-47.0) % MCV 83.0 (80-100) fl MCH 27.6 (26-34) pg MCHC 33.2 (32-36) g/dl RDW 13.2 (11.5-14.5) % Plt Count 196 (150-375) k/mm3 MPV 11.5 H (7.4-10.4) fl Immature Gran % (Auto) 0.6 H (0-0.5) % Neut % (Auto) 59.6 (45.5-73.1) % Lymph % (Auto) 29.8 (18.3-44.2) % [place] % (Auto) 7.5 (2.6-8.5) % Eos % (Auto) 2.0 (0-4.4) % Baso % (Auto) 0.5 (0.2-1.2) % Lymph # (Auto) 2.59 (0.9-3.2) K/mm3 [place] # (Auto) 0.7 H (0.1-0.6) K/mm3 Eos # (Auto) 0.2 (0-0.3) K/mm3 Baso # (Auto) 0.0 (0.0-0.1) K/mm3 Abs Immat Gran (auto) 0.05 H (0.00-0.031) K/mm3 Absolute Neuts (auto) 5.2 (1.3-6.7) K/mm3 Absolute Nucleated RBC 0.000 (0.0-0.012) K/mm3 Nucleated RBC % 0.0 (0.0-0.2) % PT 13.7 (11.1-14.7) Seconds INR 1.0 APTT 30.1 (22.3-36.8) Seconds Sodium 137 (137-145) mmol/L Potassium 3.5 (3.4-5.0) mmol/L Chloride 104 (98-107) mmol/L Carbon Dioxide 27 (22-30) mmol/L Anion Gap 6 (4-12) mmol/L BUN 13 (7-17) mg/dL Creatinine 0.84 (0.7-1.0) mg/dL Estim Creat Clear Calc 94 ml/min Estimated GFR > 60 (59 - ) Glucose 113 H (65-110) mg/dL Calcium 9.2 (8.4-10.2) mg/dL Total Bilirubin 0.9 (0.2-1.3) mg/dL AST 28 (14-36) U/L ALT 19 (6-35) U/L Alkaline Phosphatase 66 (38-126) U/L Total Protein 7.8 (6.3-8.2) g/dL Albumin 4.3 (3.5-5.1) g/dL Blood Type A Positive Antibody Screen Negative Imaging Data Attestation: I personally reviewed and interpreted this imaging study as follows: My impression: No acute fractures. Bilateral L5 pars defects. Minor anterolisthesis of L5 on S1. Discharge Plan Discharge Clinical Impression: Fall down stairs, Pain in the coccyx, Pars defect with spondylolisthesis Patient Disposition: Home Condition: Stable Instructions: Antibiotic Form, Back Pain (ED) Additional Instructions: No acute fractures identified in the spine or any intra-abdominal traumatic injuries. Your lumbar region has what is referred to as L5 pars defects with some minor anterolisthesis of L5 on S1. This is a small slippage of the spinal column where the lumbar spine connects with the sacral spine. We will send you home with pain medications and we have spoken with neuro surgery for your follow-up. Return with any worsening complaints or new emergent concerns. Return to the ER if you have increased pain in your back, you develop lower extremity weakness/numbness/paralysis, you have numbness or tingling in your private parts, or you are unable to control your ability to urinate/stool. Patient Language: Korean Prescriptions: New hydrocodone-acetaminophen 5-325 mg tablet 1 tablet PO Q8H PRN (Reason: pain) Qty: 14 0RF ketorolac 10 mg tablet 10 mg PO Q8H PRN (Reason: pain) 5 Days Qty: 20 0RF Rx Instructions: maximum total duration of 5 days from all oral, intranasal, or parenteral formulations methocarbamol 750 mg tablet 750 mg PO TID PRN (Reason: pain) Qty: 20 0RF No Action mecobalamin (vitamin B12) 500 mcg tablet,chewable PO multivitamin Tablet 1 tablet PO DAILY [id number]-fish oil-vit D3 360 mg- 12.5 mcg capsule PO Claritin Liqui-Gel 10 mg capsule 10 mg PO DAILY dicyclomine 20 mg tablet 20 mg PO TID PRN (Reason: abdominal pain) Qty: 30 0RF azelastine 137 mcg (0.1 %) spray,non-aerosol 1 - 2 spray intranasal Q12H Qty: 30 0RF Rx Instructions: administer into each nostril. Aim back/up/out fluticasone propionate [Flonase Allergy Relief] 50 mcg/actuation spray,suspension 2 spray intranasal BID Rx Instructions: administer into each nostril. Aim back/up/out ondansetron 4 mg tablet,disintegrating 4 mg PO Q8H PRN (Reason: nausea and vomiting) Qty: 20 0RF lisdexamfetamine [Vyvanse] 30 mg capsule 30 mg PO QAM Qty: 30 0RF Follow-up/Referrals: Shiraz Hahn MD [Physician, Neurosurgery] - 1 Week Referral Note: Bilateral L5 pars defects with minimal anteriorlisthesis Renard Malhotra MD [Primary Care Provider, Family Practice] Time of Disposition: 01:02
[2025-02-18 22:29] VITALS: BP 140/92; PULSE 81; RESP 18; O2SAT 100
[2025-02-18] MEDS: HYDROmorphone HCL INJ (*CRX) 1 MG/ML SYR IV PUSH (22:55)
[2025-02-18] MEDS: GABAPENTIN 300 MG CAPSULE PO (22:55)
[2025-02-18 23:06] LABS: Hematocrit 37.0 % (37.0-47.0); Hemoglobin 12.3 g/dL (12.0-15.0); Immature Granulocyte Percent A 0.6 % (0-0.5); Lymphocytes Absolute Auto 2.59 K/mm3 (0.9-3.2); Mean Corpuscular HGB Conc 33.2 g/dl (32-36); Mean Corpuscular Hemoglobin 27.6 pg (26-34); Mean Corpuscular Volume 83.0 fl (80-100); Nucleated Red Blood Cells Absolute Auto 0.000 K/mm3 (0.0-0.012); Nucleated Red Blood Cells Perc 0.0 % (0.0-0.2); Platelet Count Result 196 k/mm3 (150-375); Red Blood Count 4.46 M/mm3 (4.2-5.4); White Blood Count 8.7 K/mm3 (4.5-10.0)
[2025-02-18 23:18] LABS: INR 1.0; Partial Thromboplastin Time 30.1 Seconds (22.3-36.8); Prothrombin Time 13.7 Seconds (11.1-14.7)
[2025-02-18 23:31] LABS: Alanine Aminotransferase 19 U/L (6-35); Albumin Level 4.3 g/dL (3.5-5.1); Alkaline Phosphatase 66 U/L (38-126); Anion Gap 6 mmol/L (4-12); Aspartate Amino Transferase 28 U/L (14-36); Bilirubin,Total 0.9 mg/dL (0.2-1.3); Blood Urea Nitrogen 13 mg/dL (7-17); Calcium 9.2 mg/dL (8.4-10.2); Carbon Dioxide 27 mmol/L (22-30); Chloride 104 mmol/L (98-107); Estimated CRCL calculation 94 ml/min; Estimated Glomerular Filt Rate > 60; Glucose 113 mg/dL (65-110); Potassium 3.5 mmol/L (3.4-5.0); Sodium 137 mmol/L (137-145); Total Protein 7.8 g/dL (6.3-8.2)
[2025-02-18 23:59] VITALS: BP 139/77; PULSE 73; RESP 14; O2SAT 98
--- NOTE | 2025-02-19 00:45 | PC.NURSE ---
Pt ambulated to bathroom with a steady gait. Pt able to walk without complaints.
[2025-02-19] MEDS: HYDROmorphone HCL INJ (*CRX) 1 MG/ML SYR IV PUSH (01:15)
[2025-02-19] MEDS: KETOROLAC 15 MG/ML VIAL (*BKC) IV PUSH (01:15)
[2025-02-21 11:46] LABS: BEDSIDEPREGUCG Negative (Negative)
== END 2025-02-19 02:12 | disposition home or self-care (01) ==
PROVIDERS: Emergency Provider Student in an Organized Health Care Education/Training Program; PCP Family Medicine
DX: M53.3 Sacrococcygeal disorders, not elsewhere classified (principal); M43.16 Spondylolisthesis, lumbar region; W10.9XXA Fall (on) (from) unspecified stairs and steps, initial encounter; Z91.81 History of falling
CPT/HCPCS: 36415; 72128; 72132; 74177; 80053; 81025; 85025; 85610; 85730; 86850; 86900; 86901; 96374; 96375; 99284; A9270; J1171; J1885; Q9967